=== PATIENT | female | born 2000 | race Caucasian/White ===

== ENCOUNTER 2024-05-08 23:12 | Emergency (ER) | payer SELFPAY ==
[~2024-05-08] VITALS: Ht 160 cm; Wt 56.1 kg
[2024-05-08 23:40] VITALS: O2SAT 100
[2024-05-09] MEDS ORDERED: ACET-2708 MT (00:58)
[2024-05-09 02:10] VITALS: BP 134/66; PULSE 90; RESP 16; TEMP 36.94740; O2SAT 100
== END 2024-05-09 02:10 | disposition home or self-care (01) ==
LOC: ER 23:12
DX: S61.214A Laceration without foreign body of right ring finger without damage to nail, initial encounter (principal); W23.0XXA Caught, crushed, jammed, or pinched between moving objects, initial encounter; Y93.89 Activity, other specified; Y92.89 Other specified places as the place of occurrence of the external cause; Y99.8 Other external cause status
CPT/HCPCS: 12001; 73140; 99283